=== PATIENT | male | born 1950 | race African-American/Black ===

== ENCOUNTER 2024-09-19 18:11 | Emergency (ER) | payer MEDICARE, MEDICAID ==
[~2024-09-19] VITALS: Ht 185.4 cm; Wt 90.0 kg
[2024-09-19 18:20] VITALS: O2SAT 98
[2024-09-19] MEDS ORDERED: MAGNESIUM/ALUMINUM HYDROXIDE/SIMETHICONE 30ML UDC PO ONE (19:30)
[2024-09-19] MEDS: FAMOTIDINE 20MG TABLET PO SCH (19:30)
[2024-09-19 20:13] LABS: BASOPHILS % 0.6 % (0.0-2.0); EOSINOPHILS % 2.7 % (0.0-5.0); HEMATOCRIT. 37.7 % (42.0-52.0); HEMOGLOBIN. 12.3 g/dL (14.0-18.0); LYMPHOCYTES % 37.3 % (20.0-50.0); MEAN CORPUSCULAR HEMOGLOBIN 29.4 pg (28.0-32.0); MEAN CORPUSCULAR HGB CONC 32.6 g/dL (31.0-37.0); MEAN CORPUSCULAR VOLUME 90.2 fL (80.0-94.0); MEAN PLATELET VOLUME 7.1 fl (7.4-10.4); MONOCYTES % 9.2 % (2.0-8.0); NEUTROPHILS % 50.2 % (40.0-76.0); PLATELET 295 x1000/uL (130-400); RED BLOOD CELL COUNT 4.19 mill/uL (4.7-6.1); RED CELL DISTRIBUTION WIDTH 13.8 % (11.6-14.6); WHITE BLOOD COUNT 6.9 x1000/uL (4.5-11.0)
[2024-09-19 20:20] LABS: CARBON DIOXIDE 31 mEq/L (21-32); CHLORIDE 100 mEq/L (98-107); POTASSIUM 3.5 mEq/L (3.5-5.1); SODIUM 138 mEq/L (136-145)
[2024-09-19 20:21] LABS: CALCIUM 9.4 mg/dL (8.7-10.4)
[2024-09-19 20:22] LABS: INR 0.9; PROTHROMBIN TIME 10.4 sec (9.6-11.0)
[2024-09-19 20:26] LABS: GLUCOSE 125 mg/dL (70-105); TROPONIN I HIGH SENSITIVITY 7 ng/L (3.0-53); UREA NITROGEN BLOOD 23 mg/dL (9-23)
[2024-09-19 20:27] LABS: ALANINE AMINOTRANSFERASE 23 IU/L (10-49); ASPARTATE AMINOTRANSFERASE 23 IU/L (<34)
[2024-09-19 20:28] LABS: ALBUMIN 3.9 g/dL (3.2-4.8); BILIRUBIN TOTAL 0.2 mg/dL (0.1-1.0); PROTEIN TOTAL 7.5 g/dL (6.0-8.3)
[2024-09-19 20:30] LABS: BILIRUBIN DIRECT < 0.1 mg/dL (<=3.0); CREATININE 1.7 mg/dL (0.6-1.3)
[2024-09-19 21:36] LABS: CLARITY URINE CLEAR (CLEAR); COLOR URINE YELLOW (YELLOW); SPECIFIC GRAVITY URINE 1.017 (1.005-1.030)
[2024-09-19 21:37] LABS: GLUCOSE URINE NEGATIVE (NEGATIVE); KETONES URINE NEGATIVE (NEGATIVE); LEUKOCYTE ESTERASE URINE NEGATIVE (NEGATIVE); NITRITE URINE NEGATIVE (NEGATIVE); OCCULT BLOOD URINE NEGATIVE (NEGATIVE)
[2024-09-19 21:41] LABS: PROTEIN URINE NEGATIVE (NEGATIVE)
[2024-09-19] MEDS: MAGNESIUM/ALUMINUM HYDROXIDE/SIMETHICONE 30ML UDC PO NR (22:30)
[2024-09-20 00:18] LABS: TROPONIN I HIGH SENSITIVITY 8 ng/L (3.0-53)
[2024-09-20 01:51] VITALS: BP 130/78; PULSE 77; RESP 20; TEMP 36.55848; O2SAT 99
== END 2024-09-20 02:00 | disposition home or self-care (01) ==
LOC: ER 18:11
DX: K21.9 Gastro-esophageal reflux disease without esophagitis (principal); I10 Essential (primary) hypertension
CPT/HCPCS: 36415; 71045; 74176; 80048; 80076; 81003; 84484; 85025; 93005; 99285

== ENCOUNTER 2024-09-25 06:29 | Emergency (ER) | payer OTHER, MEDICAID ==
[~2024-09-25] VITALS: Ht 177.8 cm; Wt 80.0 kg
[2024-09-25 06:30] VITALS: O2SAT 99
[2024-09-25] MEDS: FAMOTIDINE 20MG TABLET PO ONE (07:45)
[2024-09-25] MEDS: ONDANSETRON 4MG ODT PO ONE (07:45)
[2024-09-25 12:26] LABS: BASOPHILS % 0.3 % (0.0-2.0); EOSINOPHILS % 1.8 % (0.0-5.0); LYMPHOCYTES % 23.9 % (20.0-50.0); MEAN CORPUSCULAR HEMOGLOBIN 29.6 pg (28.0-32.0); MEAN CORPUSCULAR HGB CONC 32.4 g/dL (31.0-37.0); MEAN CORPUSCULAR VOLUME 91.3 fL (80.0-94.0); MEAN PLATELET VOLUME 7.3 fl (7.4-10.4); MONOCYTES % 11.4 % (2.0-8.0); NEUTROPHILS % 62.6 % (40.0-76.0); PLATELET 298 x1000/uL (130-400); RED BLOOD CELL COUNT 4.38 mill/uL (4.7-6.1); RED CELL DISTRIBUTION WIDTH 14.4 % (11.6-14.6); WHITE BLOOD COUNT 6.9 x1000/uL (4.5-11.0)
[2024-09-25 12:37] LABS: CHLORIDE 101 mEq/L (98-107); POTASSIUM 4.2 mEq/L (3.5-5.1); SODIUM 139 mEq/L (136-145)
[2024-09-25 12:38] LABS: CARBON DIOXIDE 33 mEq/L (21-32)
[2024-09-25 12:43] LABS: CREATININE 1.7 mg/dL (0.6-1.3); GLUCOSE 100 mg/dL (70-105)
[2024-09-25 12:44] LABS: UREA NITROGEN BLOOD 23 mg/dL (9-23)
[2024-09-25 12:45] LABS: ALANINE AMINOTRANSFERASE 27 IU/L (10-49); ALBUMIN 4.3 g/dL (3.2-4.8); ASPARTATE AMINOTRANSFERASE 25 IU/L (<34)
[2024-09-25 12:46] LABS: BILIRUBIN TOTAL 0.3 mg/dL (0.1-1.0)
[2024-09-25] MEDS ORDERED: CEFP200T13 MT (13:29)
[2024-09-25] MEDS ORDERED: ONDA-239 PO (13:29)
[2024-09-25] MEDS ORDERED: AZIT250T12 MT (13:29)
[2024-09-25 13:45] VITALS: BP 149/94; PULSE 82; RESP 16; TEMP 36.94740; O2SAT 99
== END 2024-09-25 14:03 | disposition home or self-care (01) ==
LOC: ER 06:29
DX: R11.2 Nausea with vomiting, unspecified (principal); R19.7 Diarrhea, unspecified; R05.9 Cough, unspecified; I10 Essential (primary) hypertension
CPT/HCPCS: 99284; 71045; 80053; 83690; 85025; 36415; Q0162